=== PATIENT | female | born 2000 | race Two or more races ===

== ENCOUNTER 2025-01-17 08:09 | Outpatient (CLI) | payer OTHER | END 2025-01-17 08:11 | disposition home or self-care (01) | LOC: PRENATAL 08:09 | PROVIDERS: ATTEND Obstetrics & Gynecology Maternal & Fetal Medicine | DX: O36.80X0 Pregnancy with inconclusive fetal viability, not applicable or unspecified (principal); Z36.82 Encounter for antenatal screening for nuchal translucency; Z14.8 Genetic carrier of other disease; Z3A.13 13 weeks gestation of pregnancy ==

== ENCOUNTER 2025-03-05 09:01 | Outpatient (CLI) | payer OTHER | END 2025-03-05 09:02 | disposition home or self-care (01) | LOC: PRENATAL 09:01 | PROVIDERS: ATTEND Obstetrics & Gynecology Maternal & Fetal Medicine | DX: O44.00 Complete placenta previa NOS or without hemorrhage, unspecified trimester (principal); Z3A.20 20 weeks gestation of pregnancy ==

== ENCOUNTER 2025-04-25 10:23 | Outpatient (CLI) | payer OTHER | END 2025-04-25 10:24 | disposition home or self-care (01) | LOC: PRENATAL 10:23 | PROVIDERS: ATTEND Obstetrics & Gynecology Maternal & Fetal Medicine | DX: O26.849 Uterine size-date discrepancy, unspecified trimester (principal); O36.8199 Decreased fetal movements, unspecified trimester, other fetus; O36.8310 Maternal care for abnormalities of the fetal heart rate or rhythm, first trimester, not applicable or unspecified; Z3A.26 26 weeks gestation of pregnancy ==

== ENCOUNTER 2025-05-30 10:28 | Outpatient (CLI) | payer OTHER | END 2025-05-30 10:29 | disposition home or self-care (01) | LOC: PRENATAL 10:28 | PROVIDERS: ATTEND Obstetrics & Gynecology Maternal & Fetal Medicine | DX: O26.849 Uterine size-date discrepancy, unspecified trimester (principal); O36.8199 Decreased fetal movements, unspecified trimester, other fetus; O36.8310 Maternal care for abnormalities of the fetal heart rate or rhythm, first trimester, not applicable or unspecified; Z3A.31 31 weeks gestation of pregnancy ==

== ENCOUNTER 2025-07-18 13:30 | Inpatient (IN) | payer OTHER ==
[~2025-07-18] VITALS: Ht 157.5 cm; Wt 65.3 kg
[2025-07-23 04:08] VITALS: BP 126/76
[2025-07-23] MEDS ORDERED: PRENATABS RX T1 EACH PO (04:27)
[2025-07-23] MEDS ORDERED: RINGERS SOLUTION,LACTATED 1,000 ML IV SCH (04:30)
[2025-07-23 05:11] LABS: URINE APPEARANCE Cloudy; URINE BILIRRUBIN Negative (NEGATIVE); URINE BLOOD Large; URINE COLOR Yellow; URINE GLUCOSE Negative (NEGATIVE); URINE LEUKOCYTE Trace; URINE NITRATE Negative; URINE PROTEIN Trace (NEGATIVE); URINE UROBILINOGEN 0.2 E.U./dl
[2025-07-23 05:14] LABS: URINE BACTERIA 291.6 uL (0.0-1933); URINE EPITHELIAL CELLS 17.0 uL (0.0-38.8); URINE RBC 505.8 uL (0.0-20.8); URINE WBC 45.2 uL (0.0-23.2)
[2025-07-23 05:21] LABS: BASO % 0.3 % (0.1-1.2); EOS # 0.03 (0.04-0.54); EOS % 0.2 % (0.7-7.0); LYMPH # 1.30 (1.18-3.74); LYMPH % 10.2 % (19.3-53.1); MEAN PLATELET VOLUME 12.00 fl (9.4-12.4); MONO # 0.87 (0.24-0.82); MONO % 6.8 % (4.7-12.5); NEUT # 10.47 (1.56-6.13); NEUT % 82.0 % (34.0-71.1); RED CELL DISTRIBUTION WIDTH 13.4 % (11.6-14.4)
[2025-07-23 05:30] LABS: URINE CAST 0.87 uL (0.0-1.40); URINE KETONE 40 (NEGATIVE)
[2025-07-23 05:37] LABS: INR 0.95
[2025-07-23 05:46] LABS: ALT/SGPT 19.0 U/L (12-78); AST/SGOT 16.0 U/L (15-37); BILIRUBIN TOTAL 0.79 mg/dL (0.3-1.2); BUN CREA RATIO 21.0 (7.0-25.0); GFR 155.14; GLOBULINA 3.8 G/DL (2.4-3.5); GLUCOSE FASTING 91.0 mg/dL (65-100); OSMOLALITY SERUM 272.0 MOSM/KG (275-295)
[2025-07-23 05:52] LABS: CREATININE SERUM 0.48 mg/dL (0.55-1.02)
[2025-07-23 07:26] VITALS: BP 132/77
[2025-07-23] MEDS ORDERED: OXYTOCIN 20 UNITS/1000ML RL PIGGYBAG IV ONE (07:30)
[2025-07-23] MEDS ORDERED: ERYTHROMYCIN BASE OPHT 1GM EACH TUBE OP ONE (07:30)
[2025-07-23] MEDS ORDERED: LIDOCAINE HCL 1% 10ML VIAL ONE (07:31)
[2025-07-23] MEDS ORDERED: CHLORHEXIDINE GLUCONATE 120 ML BOTTLE TOP ONE (07:31)
[2025-07-23] MEDS ORDERED: MORPHINE SULFATE 4 MG/ML VIAL IV ONE (08:15)
[2025-07-23 11:16] VITALS: BP 115/66
[2025-07-23 15:16] VITALS: BP 116/64
[2025-07-23 18:34] VITALS: BP 102/64
[2025-07-23 20:00] VITALS: BP 108/72
[2025-07-23 21:16] LABS: BASO % 0.2 % (0.1-1.2); EOS # 0.00 (0.04-0.54); EOS % 0.0 % (0.7-7.0); LYMPH # 1.64 (1.18-3.74); LYMPH % 9.4 % (19.3-53.1); MEAN PLATELET VOLUME 11.90 fl (9.4-12.4); MONO # 1.78 (0.24-0.82); MONO % 10.2 % (4.7-12.5); NEUT # 13.83 (1.56-6.13); NEUT % 79.7 % (34.0-71.1); RED CELL DISTRIBUTION WIDTH 13.6 % (11.6-14.4)
[2025-07-24] VITALS: BP 102/64
[2025-07-24 07:53] VITALS: BP 101/68
[2025-07-24] MEDS ORDERED: PNV,CALCIUM 72/IRON/FOLIC ACID 1 TAB TABLET PO SCH (09:00)
[2025-07-24 13:09] VITALS: BP 104/60
[2025-07-25 02:13] VITALS: BP 97/56
[2025-07-25 08:26] VITALS: BP 104/64
== END 2025-07-25 13:05 | disposition home or self-care (01) | DRG 807 ==
LOC: LDR 07-23 04:24 → OB/GYN 07-23 04:24 → LDR 07-25 13:30
PROVIDERS: Obstetrics & Gynecology; ADMIT Obstetrics & Gynecology; ATTEND Obstetrics & Gynecology
PROC: 10E0XZZ Delivery of Products of Conception, External Approach (ICD-10-PCS; principal; 2025-07-23)
PROC: 0KQM0ZZ Repair Perineum Muscle, Open Approach (ICD-10-PCS; 2025-07-23)
PROC: 4A1HXCZ Monitoring of Products of Conception, Cardiac Rate, External Approach (ICD-10-PCS; 2025-07-23)
DX: O70.1 Second degree perineal laceration during delivery (principal); Z37.0 Single live birth; Z3A.39 39 weeks gestation of pregnancy